=== PATIENT | male | born 1955 | race Caucasian/White ===

== ENCOUNTER 2019-06-07 11:19 | Inpatient (IN) ==
--- NOTE | 2019-05-16 13:33 | PAT Medication Instructions ---
Medication Instructions Date of Service May 16, 2019 Home Medications aspirin [Aspir-81] 81 mg PO DAILY PRN losartan 12.5 mg PO QAM ASK your prescriber and surgeon aspirin [Aspir-81] 81 mg PO DAILY PRN DO NOT take the morning of surgery losartan 12.5 mg PO QAM Other Notes If you have any questions please call us at [phone] or [phone] or [phone] or [phone]
--- NOTE | 2019-05-17 11:33 | Anesthesiology Consultation ---
Date of Service May 17, 2019 Assessment & Plan (1) Encounter for pre-operative examination: Hx mitral valve repair (2010): per patient, does not follow with cardi ology/cardiac hx monitored by PCP. Awaiting most recent PCP office visit note and response from PCP (Dr. Vinay Black) regarding obtaining most recent ECHO or updating prior to surgery if not recently evaluated. Chart Review Chart Review: Patient seen in Pre Admission Testing Teaching & Discussion Pre-Anesthesia Teaching/Discussion Notes: Instructed NPO after midnight before surgery,except medications with 15 cc of water. Medication instructions provided according to the PAT guidelines. History Surgery Operation Date: 06/07/19 14:05 Proposed Procedures p Left Anterior Total Hip Arthroplasty - Cj Perdomo, Height/Weight Height: 5 ft 8 in Weight: 116.8 kg Allergies Allergy/AdvReac Type Severity Reaction Status Date / Time morphine AdvReac Mild DIZZINESS Verified 05/17/19 10:33 Medications Home Medications Medication Instructions Recorded Confirmed Last Taken aspirin [Aspir-81] 81 mg PO DAILY PRN 05/13/19 05/17/19 Unknown losartan 12.5 mg PO QAM 05/13/19 05/17/19 Unknown Past Medical History Medical History (Updated 05/17/19 @ 12:02 by Rae Sow) A-fib episodic (2010) per records Deep vein thrombosis RLE DVT (2009)- r/t injury, s/p AC x 6 months Diverticular disease Hypertension Mitral valve disease s/p mitral valve repair (2010)- monitored by PCP/does not follow with cardiology Obesity Osteoarthritis Pulmonary embolism 2009- s/p AC x 6 months Exercise / Class Metabolic Activity III < 4 Walking/Shop/Light housework Past Surgical History Surgical History History of colonoscopy History of mitral valve repair 2010 History of umbilical hernia repair Past Anesthesia History No Hx of Anesthesia Complications (except PONV) and No Family Hx of Anesthesia Complications History of PONV No Hx of Motion Sickness and History of PONV Social History Smoking Status: Never smoker Do You Dip or Chew Tobacco: No Hx Alcohol Use: No Hx Substance Use: No substance use type: does not use Review of Systems Patient denies chest pain, shortness of breath, cough, wheezing, palpitations. Physical Exam Vital Signs VITALS BP 138/82 P 68 TEMP 98.4 S 97%RAP02 RESP 18 PHYSICAL Full neck and c-spine range of motion. Full TMJ range of motion. TMD 3 finger breaths Mallampati Score 2 Dentition: full dentures upper/lower Lungs: clear throughout to auscultation Cardiac: regular rate and rhythm, II/ systolic murmur Spine: normal Carotid arteries: negative bruit Extremities: no edema + day (patient wishes to not shave/trim for anglican reasons if possible. Advised patient that ultimate decision regarding day and shaving will be up to anesthesiologist AM DMITRIY) Testing Laboratory Results 05/17/19 11:50 05/17/19 11:50 PT 10.3 Seconds (9.0-12.0) 05/17/19 11:50 INR 1.0 (0.9-1.1) 05/17/19 11:50 APTT 27.9 Seconds (21.0-31.0) 05/17/19 11:50 Blood Type A Positive 05/17/19 11:50 Antibody Screen NEGATIVE 05/17/19 11:50 Electrocardiogram Date: 05/17/19 SR with first degree AVB at 76bpm. Otherwise "normal" ECG. Chest X-Ray Date: 05/17/19 No pneumothorax. No pleural effusions. There are poststernotomy changes and a mitral valve ring. The lungs are clear. The heart remains top normal in size. Stable right hilar prominence. This is likely vascular. IMPRESSION: No acute process
--- NOTE | 2019-05-17 12:27 | XRay Report ---
XR chest Pre-admission PA/Lat HISTORY: Preop. COMPARISON: Chest 11/23/2016. FINDINGS: No pneumothorax. No pleural effusions. There are poststernotomy changes and a mitral valve ring. The lungs are clear. The heart remains top normal in size. Stable right hilar prominence. This is likely vascular. IMPRESSION: No acute process. ACT 112: Negative or not required by law. Electronically signed by: Liu Terry M.D. 05/17/2019 12:26 PM
[2019-05-17 13:58] LABS: Basophils # (auto) 0.11 K/uL (0-0.2); Basophils % (auto) 1.6 %; Eosinophils # (auto) 0.39 K/uL (0-0.5); Eosinophils % (auto) 5.7 %; Hematocrit (blood only) 42.6 % (42-52); Hemoglobin 14.5 g/dL (14.0-18.0); Immature Granulocytes # (auto) 0.01 K/uL (0.00-0.02); Immature Granulocytes % (auto) 0.1 %; Lymphocytes # (auto) 1.65 K/uL (1.2-3.4); Lymphocytes % (auto) 24.2 %; Mean Corpuscular Hemoglobin 31.8 pg (25-34); Mean Corpuscular Volume 93.4 fL (80-100); Mean Platelet Volume 10.7 fL (7.4-10.4); Monocytes % (auto) 8.8 %; Neutrophils # (auto) 4.07 K/uL (1.4-6.5); Neutrophils % (auto) 59.6 %; Platelet Count 178 K/uL (130-400); RDW Coefficient of Variation 12.7 % (11.5-14.5); RDW Standard Deviation 42.7 fL (36.4-46.3); Red Blood Count 4.56 M/uL (4.7-6.1); White Blood Count 6.83 K/uL (4.8-10.8)
--- NOTE | 2019-05-17 13:58 | Electrocardiogram Report ---
Test Reason : Blood Pressure : / mmHG Vent. Rate : 076 BPM Atrial Rate : 076 BPM P-R Int : 210 ms QRS Dur : 092 ms QT Int : 392 ms P-R-T Axes : 104 041 063 degrees QTc Int : 441 ms Sinus rhythm with 1st degree A-V block Otherwise normal ECG When compared with ECG of 25-NOV-2010 06:27, Sinus rhythm has replaced Atrial fibrillation Non-specific change in ST segment in Inferior leads Confirmed by Rafiq Brown ([id number]) on 05/17/2019 1:58:35 PM Referred By: Cj Perdomo Confirmed By:Rafiq Brown
[2019-05-17 14:13] LABS: Partial Thromboplastin Time 27.9 Seconds (21.0-31.0); Prothrombin Time 10.3 Seconds (9.0-12.0)
[2019-05-17 14:26] LABS: Calcium 9.2 mg/dl (8.5-10.1); Creatinine Clr Calc Pharmacy 120.3 ml/min; Est GFR (African American) 110.8; Est GFR (Non-African American) 95.6; Potassium 4.1 mmol/L (3.5-5.1)
--- NOTE | 2019-06-06 07:39 | History & Physical Report ---
Date of Service June 06, 2019 Assessment & Plan (1) Osteoarthritis of left hip: We will proceed with a left total hip arthroplasty. Postoperatively he will be started on Xarelto for DVT prophylaxis for 35 days. He will be kept overnight in the hospital for postoperative medical management. He plans to go to outpatient physical therapy upon discharge. Present on Admission?: Yes History of Present Illness Chief Complaint: Primary osteoarthritis of the left hip Primary Care Provider: Vinay Black MD Clyde is a pleasant 64-year-old male who presented my office with chronic increasing left hip and groin pain. X-rays and clinical examination have been diagnostic for primary osteoarthritis of the left hip. After failing conservative treatment, he has elected to proceed with a left total hip arthroplasty. Allergies Allergy/AdvReac Type Severity Reaction Status Date / Time morphine AdvReac Mild DIZZINESS Verified 05/17/19 10:33 Home Medications Home Medications Medication Instructions Recorded Confirmed Type aspirin [Aspir-81] 81 mg PO DAILY PRN 05/13/19 05/17/19 History losartan 12.5 mg PO QAM 05/13/19 05/17/19 History Past Med/Surg History Medical History A-fib episodic (2010) per records Deep vein thrombosis RLE DVT (2009)- r/t injury, s/p AC x 6 months Diverticular disease Hypertension Mitral valve disease s/p mitral valve repair (2010)- monitored by PCP/does not follow with cardiology Obesity Osteoarthritis Pulmonary embolism 2009- s/p AC x 6 months Surgical History History of colonoscopy History of mitral valve repair 2010 History of umbilical hernia repair Social History Preferred Language: Belarusian Communication Ability: Effective 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 Beliefs That Will Affect Care: Judaism Judaism Beliefs: pt is Restorationism and Cultural Current Living Situation: Family Feels Safe at Home: Yes Smoking Status: Never smoker Second Hand Exposure: No ; Hx Alcohol Use: No Hx Substance Use: No Review of Systems All systems reviewed & are unremarkable except as noted in HPI & below Physical Exam Constitutional: WD/WN, vitals as above Eyes: PERRL, conjunctivae normal, anicteric sclerae ENMT: external ear and nose normal, oropharynx normal Neck: trachea midline, no thyromegaly Respiratory: normal respiratory effort Cardiovascular: RRR, no murmur, no edema Gastrointestinal (Abdomen): normal bowel sounds, soft, nontender, no hepatosplenomegaly Musculoskeletal: Physical examination of the left hip reveals decreased range of motion with flexion, internal and external rotation. There is significant groin pain with forced internal rotation of the hip his leg lengths are essentially equal. Psychiatric: A+Ox3, euthymic affect Results & Data Diagnostic Findings Radiographs of the left hip and pelvis demonstrate advanced osteoarthritis with joint space narrowing osteophyte formation and [id number] articulation.
[~2019-06-07 11:19] MED LIST: ACETAMINOPHEN 500 MG TAB PO SCH; BUPIVACAINE 0.5 % 5 MG/1 ML PF 10ML VIAL ONE; CEFAZOLIN 2000MG 2,000 MG/15 ML SYR IV SCH; FAMOTIDINE 20 MG TAB PO SCH; GABAPENTIN 300 MG CAP PO SCH; LR 500ML BOLUS, THEN 15ML/HR IV SCH; LR 60ML/HR IV SCH; ROPIVACAINE 0.5% HCL/PF 150 MG, BUPIVACAINE 0.5% MPF 30 ML, EPINEPHrine 30MG/30ML (OR U... INSTIL SCH; SODIUM CHLORIDE 0.9% 1,000 ML IV SCH; TRANEXAMIC ACID 1,000 MG **IV Intra-op IV SCH; TRANEXAMIC ACID 1,000 MG **IV Pre-op IV SCH; dexAMETHasone 4 MG TAB PO SCH
--- NOTE | 2019-06-07 11:40 | History & Physical Bridge Note ---
Date of Service June 07, 2019 History & Physical Bridge Note I have examined the patient, reviewed the History & Physical and in the interval since the performance of the History & Physical I have noted the following changes of clinical significance: no changes noted
[2019-06-07] MEDS ORDERED: ePHEDrine sulfate 50 MG/ML AMP IV PRN (12:47)
[2019-06-07] MEDS ORDERED: ONDANSETRON INJ 2 MG/ML 2 ML VIAL IV PRN ×2 (12:47→16:54)
[2019-06-07] MEDS ORDERED: ATROPINE SULFATE 0.1 MG/ML 10ML SYR IV PRN (12:47)
[2019-06-07] MEDS ORDERED: fentaNYL citrate 100 MCG/2 ML VIAL IV PRN (12:47)
[2019-06-07] MEDS ORDERED: MIDAZOLAM HCL 1 MG/ML 2ML VIAL ONE (13:42)
[2019-06-07] MEDS ORDERED: ORTHO JOINT ANESTHETIC ONE (13:52)
[2019-06-07] MEDS ORDERED: ONDANSETRON INJ 2 MG/ML 2 ML VIAL ONE (14:16)
[2019-06-07] MEDS ORDERED: PROPOFOL IV EMULSION 10 MG/ML 20 ML VIAL IV ONE (14:16)
[2019-06-07] MEDS ORDERED: DEXAMETHASONE SOD INJ 4 MG/ML VIAL ONE (14:16)
[2019-06-07] MEDS ORDERED: LIDOCAINE HCL 2% 2 ML VIAL/AMP(20MG/ML) INFIL ONE ×3 (14:16→14:56)
--- NOTE | 2019-06-07 15:41 | Fluoroscopy Report ---
FL hip LT 1V CLINICAL HISTORY: LEFT ANTERIOR JEANNE COMPARISON STUDY: None. FLUOROSCOPY TIME: 32 seconds.. FINDINGS: A single fluoroscopic spot image of the left hip demonstrates a left total hip arthroplasty . The hardware appears intact. No fracture or dislocation. IMPRESSION: Fluoroscopy provided for left total hip arthroplasty. ACT 112: Negative or not required by law. Electronically signed by: Liu Terry M.D. 06/07/2019 3:40 PM
--- NOTE | 2019-06-07 15:43 | Operative Report ---
PG Post Operative Report Pre & Post Diagnosis Operation Date: 06/07/19 13:40 Pre-Op Diagnosis: Degenerative Joint Disease, Left Hip Post-Op Diagnosis: Degenerative Joint Disease, Left Hip I identified the patient and participated in the time-out.: Yes Procedure Operation Date: 06/07/19 13:40 Actual Procedures p Left Anterior Total Hip Arthroplasty(Left) - Cj Perdomo DO Surgeon Cj Perdomo DO Hull Molder Cj Walter PAC Estimated Blood Loss 300 Findings Consistent with Post-Op Diagnosis Specimens Left femoral head Complications none Disposition Disposition: Recovery Room Indications Clyde is a pleasant 64-year-old male who presented my office with chronic increasing bilateral hip and groin pain. X-rays and clinical examination were diagnostic for advanced osteoarthritis of the left hip. After failing conservative treatment, he elected proceed with a left anterior total hip arthroplasty. Description of Procedure Implants used Biomet Taperloc total hip arthroplasty system with a size 14 standard offset Taperloc stem, a 56 mm G7 cup with a 25mm screw, an E1 polyethylene liner, a 40 mm ceramic head with a +6 neck. Patient arrived at the hospital for the above procedure. They were seen in the preoperative holding area and the operative extremity was identified and signed. They were given a spinal anesthetic. They were given a preoperative antibiotic and TXA. They were taken back To the operating room and laid on the table in the supine position. The leg was brought out through a Puristst leg positioner. The hip was then prepped and draped in sterile fashion. A timeout was done and the patient and the operative extremity was properly identified. An anterior approach was used. Dissection was taken down through the fascia and the tensor muscle belly was retracted laterally and the rectus was retracted medially. The circumflex vessels were identified and ligated. The capsule was then incised and tagged for later repair. The femoral neck was then cut and the femoral head was removed. The acetabulum was exposed. Time was spent doing a complete circumferential labral release. Sequential reaming of the acetabulum up to a size 55 reamer was done. Final reamings were done under fluoroscopy to ensure appropriate version. A Biomet 56 mm G7 cup was then impacted into place. A single 25 mm screw was placed. The E1 polyethylene liner was then snapped in to place. Surrounding soft tissues were then injected with 100 cc of an orthopedic pain control cocktail. The proximal femur was then exposed. Sequential broaching up to a size 14 broach was done. Off that broach a size 40 head with a +6 neck was trialed. The hip was reduced and fluoroscopic images showed anatomic alignment of the implants in acceptable length. The broach was removed. The final size 14 standard offset Taperloc stem was then impacted into place. A ceramic 40 mm head with a +6 neck was then impacted into place in the hip was reduced. Final fluoroscopic images showed anatomic reduction of the hip. The capsule was then closed with #1 Vicryl suture. A dilute betadyne lavage was then done for 3 minutes. The joint was then irrigated with normal saline solution. The fascia was closed with #1 PDS suture. Skin was closed with 2-0 Vicryl, rosanna, and a Jeannette VAC dressing. The patient was then transferred to a hospital bed and taken to the post anesthesia care unit in stable condition. They tolerated the procedure well. I attest to the content of the Intraoperative Record and any orders documented therein. Any exceptions are noted below.
--- NOTE | 2019-06-07 16:40 | Anesthesiology Progress Note ---
Date of Service June 07, 2019 Anesthesia Post Procedure Vital Signs Vital Signs: Temp Pulse Pulse Resp BP Pulse Ox 06/07/19 16:35 36.9 C 85 15 120/70 96 06/07/19 16:25 87 17 118/71 96 06/07/19 16:15 90 19 122/67 97 06/07/19 16:06 36.8 C 90 22 109/64 97 06/07/19 12:08 36.4 C L 85 20 170/85 H 96 Transfer of Care Handoff Completed per policy Notes Mental Status: alert / awake / arousable and participated in evaluation Patient Amnestic to Procedure: Yes Nausea / Vomiting: adequately controlled Pain: adequately controlled Airway Patency, RR, SpO2: stable & adequate BP & HR: stable & adequate Hydration State: stable & adequate Neuraxial Anesthesia: was administered and sensory block is resolving Anesthetic Complications: no major complications apparent and Pt Satisfied with anesthetic care
--- NOTE | 2019-06-07 16:53 | XRay Report ---
XR hip 1V LT w pelvis CLINICAL HISTORY: IN PACU - A/P PELVIS and LATERAL HIP COMPARISON: None. DISCUSSION: Anatomic alignment posttotal left hip arthroplasty. Could contact between prosthetic and underlying bone. Expected postoperative soft tissue change. IMPRESSION: Anatomic alignment posttotal left hip arthroplasty. ACT 112: Negative or not required by law. The above report was generated using voice recognition software. It may contain grammatical, syntax or spelling errors. Electronically signed by: Jesus Lugo M.D. 06/07/2019 4:52 PM
[2019-06-07] MEDS ORDERED: HYDROmorphone INJ 0.5 MG/0.5 ML SYR IV PRN (16:54)
[2019-06-07] MEDS ORDERED: OXYCODONE HCL IR 5 MG TAB (IMMEDIATE RELEASE) PO PRN (16:54)
[2019-06-07] MEDS ORDERED: NALOXONE HCL 0.4 MG/1 ML VIAL/CARP IV PRN (16:54)
[2019-06-07] MEDS ORDERED: METOCLOPRAMIDE HCL INJ 5 MG/ML 2 ML VIAL IV PRN (16:54)
[2019-06-07] MEDS ORDERED: MAGNESIUM HYDROXIDE SUSP 30 ML UDC PO PRN (16:54)
[2019-06-07] MEDS ORDERED: bisacodyL 10 MG SUPP PR PRN (16:54)
[2019-06-07] MEDS: KETOROLAC 30 MG/ML VIAL IV SCH ×2 (17:52→23:40)
[2019-06-07] MEDS: SODIUM CHLORIDE 0.9% 1000ML 1,000 ML IV SCH (20:10)
[2019-06-07] MEDS ORDERED: SENNA 8.6 MG TAB PO SCH (21:00)
[2019-06-07] MEDS: DOCUSATE SODIUM 100 MG CAP PO SCH (21:10)
[2019-06-07] MEDS: ACETAMINOPHEN 500 MG TAB PO SCH (21:10)
[2019-06-07] MEDS: CEFAZOLIN 2000MG 2,000 MG/15 ML SYR IV SCH (21:10)
[2019-06-08] MEDS: SODIUM CHLORIDE 0.9% 1000ML 1,000 ML IV SCH (05:11)
[2019-06-08] MEDS: ACETAMINOPHEN 500 MG TAB PO SCH (05:13)
[2019-06-08] MEDS: KETOROLAC 30 MG/ML VIAL IV SCH (05:13)
[2019-06-08] MEDS: CEFAZOLIN 2000MG 2,000 MG/15 ML SYR IV SCH (05:14)
[2019-06-08 05:50] LABS: Basophils # (auto) 0.01 K/uL (0-0.2); Basophils % (auto) 0.1 %; Hematocrit (blood only) 38.3 % (42-52); Hemoglobin 13.1 g/dL (14.0-18.0); Immature Granulocytes # (auto) 0.03 K/uL (0.00-0.02); Immature Granulocytes % (auto) 0.2 %; Lymphocytes # (auto) 0.81 K/uL (1.2-3.4); Mean Corpuscular Hemoglobin 30.7 pg (25-34); Mean Corpuscular Hgb Conc 34.2 g/dL (32-36); Mean Corpuscular Volume 89.7 fL (80-100); Mean Platelet Volume 9.9 fL (7.4-10.4); Monocytes # (auto) 0.52 K/uL (0.11-0.59); Monocytes % (auto) 3.8 %; Neutrophils # (auto) 12.14 K/uL (1.4-6.5); Neutrophils % (auto) 89.9 %; Platelet Count 170 K/uL (130-400); RDW Coefficient of Variation 12.3 % (11.5-14.5); RDW Standard Deviation 39.8 fL (36.4-46.3); Red Blood Count 4.27 M/uL (4.7-6.1); White Blood Count 13.51 K/uL (4.8-10.8)
[2019-06-08 06:18] LABS: BUN Creatinine Ratio 22.8 (10-20); Calcium 8.6 mg/dl (8.5-10.1); Creatinine Clr Calc Pharmacy 89.7 ml/min; Est GFR (African American) 90.5; Est GFR (Non-African American) 78.1
--- NOTE | 2019-06-08 06:24 | Orthopedic Progress Note ---
Date of Service June 08, 2019 Assessment & Plan (1) History of left hip replacement: Overall he is doing very well. Is not having too much pain in the left hip. He is on Xarelto for DVT prophylaxis. He will be seen by physical therapy again this morning for ambulation and range of motion exercises. He can be discharged home later today. He will follow-up with orthopedics in 2 weeks. Present on Admission?: Yes Subjective Clyde was seen and examined at bedside this morning. Overall he is doing very well. He is not having too much pain in the left hip. He was already up and ambulating into the hallways. He has no complaints. Physical Exam Musculoskeletal: On physical examination of the left hip, the Jeannette VAC d ressing is to suction. His leg lengths are equal. He has active dorsiflexion and plantarflexion of his left ankle. Sensation is intact throughout. Results & Data ([facility]) Vital Signs (Past 12 Hours) Vital Signs Temp Pulse Resp BP Pulse Ox 06/08/19 03:34 36.6 C 81 18 136/76 92 06/07/19 23:23 36.3 C L 81 17 135/79 92 06/07/19 19:57 36.5 C 86 17 133/80 92 06/07/19 18:52 36.5 C 94 H 18 137/80 94 Laboratory Results H & H 05/17/19 06/08/19 Range/Units 11:50 05:25 Hgb 14.5 13.1 L (14.0-18.0) g/dL Hct 42.6 38.3 L (42-52) % Coagulation 05/17/19 Range/Units 11:50 INR 1.0 (0.9-1.1) Diagnostic Findings Postoperative x-rays of the left hip show the prosthesis to be in anatomic align ment without any evidence of fracture, dislocation, or loosening. PG Care Time/CCT Total # of Minutes Spent Total Time Spent with Patient: Total time spent is greater than 50% in coordination of care (as documented) at patient's floor/unit and/or counseling patient: Coding Level of Care Code None Diagnoses History of left hip replacement Z96.642
--- NOTE | 2019-06-08 06:32 | Discharge Summary ---
Date of Service June 08, 2019 Admission HPI Per Admitting Provider Clyde is a pleasant 64-year-old male who presented my office with chronic increasing left hip and groin pain. X-rays and clinical examination have been diagnostic for primary osteoarthritis of the left hip. After failing conservative treatment, he has elected to proceed with a left total hip arthroplasty. Principal Diagnosis Left total hip arthroplasty Discharge Data Allergies Allergy/AdvReac Type Severity Reaction Status Date / Time morphine AdvReac Mild DIZZINESS Verified 06/07/19 11:47 Consultations 06/08/19 08:00 Consult Case Management - Discharge Planning Routine Procedures Performed Operation Date: 06/07/19 13:40 Actual Procedures p Left Anterior Total Hip Arthroplasty(Left) - Cj Perdomo DO Ordered Studies 06/07/19 07:00 FL fluoroscopy <1hr Routine FL hip LT 1V Routine Hospital Course (1) History of left hip replacement: On June 07, 2019 Clyde arrived at [facility] and underwent a left anterior total hip replacement without complication. He had a spinal anesthetic. Postoperatively he was started on Xarelto for DVT prophylaxis and discharged to general orthopedic floors. His hospital course was uneventful. On postop day #1 his H&H was stable and his pain was well controlled. He was able to participate well with physical therapy doing ambulation and range of motion exercises. He was then discharged home. He will follow-up with orthopedics in 2 weeks. Total Time Total Time Spent Total Time Spent (In Minutes): 20 Discharge Plan Discharge Items Reason For Visit: Degenerative Joint Disease, Left Hip Discharge Diagnosis: Left total hip arthroplasty Activity: As commented below Non-emergency contact: Surgeon Call non-emergency contact if: your wound has increased redness and your wound has increased drainage Follow-up/Referrals: Vinay Black MD [Primary Care Provider] - Diet: Regular Addtl Attending Provider Instructions: Activity and Therapy Recommendations: * If you are using [facility] then therapy will be provided at your home until they feel you have accomplished all of your goals. * If you are using [facility] then Physical Therapy will be provided until they feel you are ready to start Outpatient Physical Therapy. * If you are not using home therapy then Outpatient Physical Therapy should start about 3-5 days from your day of surgery. Therapy will last about 6-10 weeks * You were shown a series of exercises in the hospital. Do these exercises three times each day including the exercises you were shown in physical therapy. * Get up and walk several times each day.~ For the first four weeks, try not to stand or walk for more than one hour at a time. If you do stand or walk for more than one hour, you will not hurt anything, but your leg will likely swell.~~ * As you feel comfortable, you may change from the walker or crutches to a cane and~then to independent walking. Medications: * Narcotic You will likely be sent home from the hospital with a prescription for the narcotic pain medication that worked best throughout your stay. * Aspirin Most patients will be required to take Aspirin 81mg twice a day for 6 weeks after surgery. This is obtained [id number] and a prescription is not necessary. * Other medications may be prescribed for specific circumstances. If you have any questions, please call the office at . * Resume previous home medications unless otherwise instructed TEDs/Elastic Stockings: The white elastic stockings help limit swelling and prevent blood clots from forming in your legs. The more you wear them, the more they work. Wear them for six weeks. Dressing Care: You will likely have a purple VAC dressing after surgery. This dressing will keep the incision dry and promote early healing. After about 7 days the batteries will wear out and the VAC will lose suction. Simply remove the dressing at that time and throw everything away, including the small suction machine. Then, you may leave the rosanna open to air or cover them with a dry dressing so they do not rub on your pants. The rosanna will be removed at your 2 week follow-up appointment. Showering: You may shower immediately with the purple VAC dressing. Let the shower spray hit your opposite side and slowly pat the plastic dry. Do not soak the dressing. After the dressing is removed you may shower normally with the rosanna exposed. Let soapy water run over the rosanna and pat them dry. Things To Watch For: * Drainage from the incision site that occurs more than one week after your surgery. * Increased redness at the incision site. * Fever above 102 degrees Fahrenheit. * Unusual chest pain or shortness of breath. * [facility] at with any of the above problems Follow-Up Visit: Follow-up with Dr. Perdomo 2-3 weeks after your day of surgery. An appointment was probably scheduled when you signed-up for surgery in the office. If you have any questions call Office Instructions: More detailed instructions as well as Frequently Asked Questions were provided in a folder by our office when you signed-up for surgery. Please review these instructions when you get home. If you have any further questions or concerns, please feel free to call the office at [phone] Pending Studies at Discharge: No Stand-Alone Forms: [facility] DocSend, Smoking Cessation Medications and DC Order Prescriptions: New oxycodone 5 mg Tablet 5 mg PO Q4H PRN (Reason: pain) Qty: 30 RF: 0 Xarelto 20 mg tablet 20 mg PO DAILY Qty: 34 RF: 0 Continued losartan 25 mg Tablet 12.5 mg PO QAM RF: 0 Discontinued aspirin [Aspir-81] 81 mg Tablet,Delayed Release (Dr/Ec) 81 mg PO DAILY PRN (Reason: Pain) RF: 0 Admission Data Admit Date/Time: 06/07/19 16:09 Attending Provider: Cj Perdomo Admit Provider: Cj Perdomo Primary Care Provider: Vinay Black Coding Level of Care Code D/C Day Management <30 mins Diagnoses History of left hip replacement Z96.642
[2019-06-08] MEDS: DOCUSATE SODIUM 100 MG CAP PO SCH (07:30)
[2019-06-08] MEDS ORDERED: dexAMETHasone 4 MG TAB PO SCH (08:00)
[2019-06-08] MEDS ORDERED: RIVAROXABAN 20 MG TAB PO SCH (09:00)
[2019-06-08] MEDS ORDERED: LOSARTAN POTASSIUM 25 MG TAB PO SCH (09:00)
[2019-06-08] MEDS ORDERED: RIVAROXABAN 10 MG TABLET PO SCH (09:00)
[2019-06-08] MEDS ORDERED: MULTIVITAMIN TAB PO SCH (09:00)
== END 2019-06-08 11:17 | disposition home or self-care (01) | DRG 470 ==
LOC: ASU 11:19 → 3E 16:09

== ENCOUNTER 2019-10-07 06:50 | Observation (INO) ==
--- NOTE | 2019-10-04 13:27 | Communication Note ---
Date of Service: October 04, 2019 Travel assessment/history reviewed - low risk at this time - will be reviewed the morning of surgery. Preop routine covid 19 screening test 09/30/2019 was NE GATIVE/not detected.
--- NOTE | 2019-10-04 14:23 | Anesthesiology Consultation ---
Date of Service October 04, 2019 Assessment & Plan (1) Encounter for pre-operative examination: Case R/S due to covid19 pandemic. Pre-op labs done 07/19 are now out of date. CBC, BMP, PT/INR/PTT AM DOS. S/P L JEANNE 06/07/19 = SAB with no complications. COVID Status: As of 10/03 nurse assessment, patient denies travel to endemic area, known exposure/sick contacts, or symptoms. Tested for covid19 on 09/29 -- results NEGATIVE/not detected. Chart Review Chart Review: Acceptable Risk for Surgery (pending updated labs AM DOS) History Surgery Operation Date: 10/07/19 12:30 Proposed Procedures p Right Anterior Total Hip Arthroplasty - Cj Perdomo, Height/Weight Height: 5 ft 8 in Weight: 118.388 kg Allergies Allergy/AdvReac Type Severity Reaction Status Date / Time morphine AdvReac Mild DIZZINESS Verified 10/04/19 08:15 Medications Home Medications Medication Instructions Recorded Confirmed Last Taken losartan 12.5 mg PO QAM 05/13/19 10/04/19 06/06/19 07:00 aspirin [Aspir-81] 81 mg PO DAILY 07/20/19 10/04/19 Unknown Past Medical History Medical History A-fib episodic (2010) per records. Has not been on anticoagulation for many years. Aortic stenosis Mild on 05/2019 echo Deep vein thrombosis RLE DVT (2009)- r/t injury, s/p AC x 6 months Diverticular disease Hypertension Mitral valve disease s/p mitral valve repair (2010)- monitored by PCP/does not follow with cardiology Obesity Osteoarthritis Pulmonary embolism 2009 with DVT- s/p AC x 6 months Exercise / Class Metabolic Activity II 4-5 Yardwork/Stairs/Walk up hill Past Family History Family History Other No significant family history Past Surgical History Surgical History History of cardiac cath 2010 NO STENTS History of colonoscopy History of left hip replacement (~05/2019) History of mitral valve repair 2010 History of tooth extraction History of umbilical hernia repair Past Anesthesia History No Hx of Anesthesia Complications and No Family Hx of Anesthesia Complications History of PONV No Hx of PONV and No Hx of Motion Sickness Social History Smoking Status: Never smoker Do You Dip or Chew Tobacco: No Hx Alcohol Use: No Hx Substance Use: No substance use type: does not use Physical Exam Vital Signs (From 07/20/19 PAT appt) BP: 138/80 P: 81bpm SPO2: 93% RA T: 36.4 C R: 20 (From PAT appt 07/20/19) Constitutional + obese ENMT Mouth: + dentures and + edentulous Thyromental Distance: < 3.5 Finger Breadths (3) Mallampati Class: I Neck normal visual inspection and + facial hair (long thin day (Pt is Orthodoxy)); neck extension not limited Respiratory normal respiratory effort Auscultation: lungs clear to auscultation bilaterally Cardiovascular Rate/Rhythm: regular rate and regular rhythm Heart Sounds: no murmur Extremities: no edema Testing Other Testing Electrocardiogram Date: 05/17/19 Findings: + NSR @ (76bpm with 1st degree AV block) Otherwise normal EKG. Compared to EKG from 11/18/10, SR has replaced Afib. Nonspecific change in ST segment in inferior leads. Chest X-Ray Date: 05/17/19 Findings: + NAD Echocardiogram Date: 05/31/19 EF: 60-65% Normal biventricular systolic function. Normal chamber dimensions. Mild aortic stenosis (SANJUANA 1.6 cm). Trace aortic regurgitation. Mitral valve annuloplasty ring. Trace mitral regurgitation. No mitral stenosis. Moderate tricuspid regurgitation. Moderately elevated estimated RVSP. Trace pulmonic regurgitation. Normal estimated central venous pressure.
--- NOTE | 2019-10-06 06:57 | History & Physical Report ---
Date of Service October 06, 2019 Assessment & Plan (1) Degenerative joint disease of right hip: We will proceed with a right anterior total hip arthroplasty. Postoperatively he will be placed on Xarelto for DVT prophylaxis and kept overnight in the hospital for postoperative medical management. He plans to use [facility] outpatient physical therapy upon discharge. Clyde is an increased risk for hip replacement surgery due to his cardiac history, his history of DVTs which will require more aggressive postoperative anticoagulation, and his obesity. Present on Admission?: Yes History of Present Illness Chief Complaint: Primary osteoarthritis of the right hip Primary Care Provider: Vinay Black MD Clyde is a pleasant 64-year-old male who is been dealing with chronic bilateral hip pain. He underwent a left anterior total hip arthroplasty about 6 months ago. He is done very well with that. Unfortunately he has been dealing with a lot of right hip pain. X-rays and clinical examination have been diagnostic for primary osteoarthritis of the right hip. After failing conservative treatment, he has elected to proceed with a right anterior total hip arthroplasty. Allergies Allergy/AdvReac Type Severity Reaction Status Date / Time morphine AdvReac Mild DIZZINESS Verified 10/04/19 08:15 Home Medications Home Medications Medication Instructions Recorded Confirmed Type losartan 12.5 mg PO QAM 05/13/19 10/04/19 History aspirin [Aspir-81] 81 mg PO DAILY 07/20/19 10/04/19 History Past Med/Surg History Medical History A-fib episodic (2010) per records. Has not been on anticoagulation for many years. Aortic stenosis Mild on 05/2019 echo Deep vein thrombosis RLE DVT (2009)- r/t injury, s/p AC x 6 months Diverticular disease Hypertension Mitral valve disease s/p mitral valve repair (2010)- monitored by PCP/does not follow with [facility] rdiology Obesity Osteoarthritis Pulmonary embolism 2009 with DVT- s/p AC x 6 months Surgical History History of cardiac cath 2010 NO STENTS History of colonoscopy History of left hip replacement (~05/2019) History of mitral valve repair 2011 History of tooth extraction History of umbilical hernia repair Family History Other No significant family history Social History Preferred Language: French Communication Ability: Effective [employer] Math Teacher Required: No Beliefs That Will Affect Care: Catholic Catholic Beliefs: ROLANDO marital status: Current Living Situation: Spouse Feels Safe at Home: Yes Smoking Status: Never smoker Second Hand Exposure: No ; Hx Alcohol Use: No Hx Substance Use: No Review of Systems Review of Systems: All systems reviewed & are unremarkable except as noted in HPI & below Physical Exam Constitutional: WD/WN, vitals as above Eyes: PERRL, conjunctivae normal, anicteric sclerae ENMT: external ear and nose normal, oropharynx normal Neck: trachea midline, no thyromegaly Respiratory: normal respiratory effort Cardiovascular: RRR, no murmur, no edema Gastrointestinal (Abdomen): normal bowel sounds, soft, nontender, no hepatosplenomegaly Musculoskeletal: Physical examination of the right hip reveals decreased range of motion with flexion, internal and external rotation. There is significant groin pain with forced internal rotation of the hip his leg lengths are essentially equal. Psychiatric: A+Ox3, euthymic affect Results & Data Results & Data ([facility]) Diagnostic Findings Radiographs of the right hip and pelvis demonstrate advanced osteoarthritis with joint space narrowing osteophyte formation and [id number] articulation. PG Care Time/CCT Total # of Minutes Spent Total Time Spent with Patient: Total time spent is greater than 50% in coordination of care (as documented) at patient's floor/unit and/or counseling patient: Coding Level of Care Code 34122 Initial Inpt Care Lvl 3 Diagnoses Degenerative joint disease of right hip M16.11
[~2019-10-07 06:50] MED LIST changes: -SODIUM CHLORIDE 0.9% 1,000 ML IV SCH
[2019-10-07 07:26] LABS: Hematocrit (blood only) 43.1 % (42-52); Hemoglobin 14.7 g/dL (14.0-18.0); Mean Corpuscular Hemoglobin 30.4 pg (25-34); Mean Corpuscular Volume 89.2 fL (80-100); Mean Platelet Volume 9.8 fL (7.4-10.4); Platelet Count 173 K/uL (130-400); RDW Standard Deviation 42.5 fL (36.4-46.3); Red Blood Count 4.83 M/uL (4.7-6.1); White Blood Count 6.68 K/uL (4.8-10.8)
[2019-10-07 07:36] LABS: Mean Corpuscular Hgb Conc 34.1 g/dL (32-36)
[2019-10-07 07:38] LABS: BUN Creatinine Ratio 15.3 (10-20); Calcium 8.8 mg/dl (8.5-10.1); Creatinine Clr Calc Pharmacy 63.6 ml/min; Est GFR (African American) 105.2; Est GFR (Non-African American) 90.8; Potassium 3.6 mmol/L (3.5-5.1)
[2019-10-07 07:49] LABS: Partial Thromboplastin Time 28.8 Seconds (21.0-31.0); Prothrombin Time 10.9 Seconds (9.0-12.0)
[2019-10-07] MEDS ORDERED: fentaNYL citrate 100 MCG/2 ML VIAL ONE (08:30)
[2019-10-07] MEDS ORDERED: MIDAZOLAM HCL 1 MG/ML 2ML VIAL ONE (08:30)
--- NOTE | 2019-10-07 08:31 | History & Physical Bridge Note ---
Date of Service October 07, 2019 History & Physical Bridge Note I have examined the patient, reviewed the History & Physical and in the interval since the performance of the History & Physical I have noted the following changes of clinical significance: no changes noted
[2019-10-07] MEDS ORDERED: ATROPINE SULFATE 0.1 MG/ML 10ML SYR IV PRN (08:45)
[2019-10-07] MEDS ORDERED: ONDANSETRON INJ 2 MG/ML 2 ML VIAL IV PRN ×2 (08:45→12:26)
[2019-10-07] MEDS ORDERED: ePHEDrine sulfate 50 MG/ML AMP IV PRN (08:45)
[2019-10-07] MEDS ORDERED: fentaNYL citrate 100 MCG/2 ML VIAL IV PRN (08:45)
[2019-10-07] MEDS ORDERED: ORTHO JOINT ANESTHETIC ONE (08:58)
[2019-10-07] MEDS ORDERED: LIDOCAINE HCL 2% 2 ML VIAL/AMP(20MG/ML) INFIL ONE (09:03)
[2019-10-07] MEDS ORDERED: PROPOFOL IV EMULSION 10 MG/ML 20 ML VIAL IV ONE (09:03)
[2019-10-07] MEDS ORDERED: PHENYLEPHRINE HCL 10 MG/ML VIAL ONE (10:06)
--- NOTE | 2019-10-07 10:48 | Operative Report ---
PG Post Operative Report Pre & Post Diagnosis Operation Date: 10/07/19 08:50 Pre-Op Diagnosis: RIGHT HIP DEGENERATIVE JOINT DISEASE Post-Op Diagnosis: RIGHT HIP DEGENERATIVE JOINT DISEASE I identified the patient and participated in the time-out.: Yes Procedure Operation Date: 10/07/19 08:50 Actual Procedures p Right Anterior Total Hip Arthroplasty(Right) - Cj Perdomo DO Surgeon Cj Perdomo DO Gym Manager Cj Walter PAC Estimated Blood Loss 250 Findings Consistent with Post-Op Diagnosis Specimens Right femoral head Complications none Disposition Disposition: Recovery Room Indications Clyde is a pleasant 64-year-old male who presented my office with complaints of bilateral hip pain. X-rays and clinical examination were diagnostic for advanced osteoarthritis of both hips. He underwent a left total hip arthroplasty in May 2019 he did very well with that. He has elected to proceed with a right total hip arthroplasty. Description of Procedure Implants used I used a Biomet Taperloc total hip arthroplasty system with a size 14 standard offset Taperloc stem, a 56 mm G7 cup with a 25mm screw, an E1 polyethylene liner, a 40 mm ceramic head with a +3 neck. Clyde arrived at the hospital for the above procedure. He was seen in the preoperative holding area and the operative extremity was identified and signed. He was given a spinal anesthetic, a preoperative antibiotic, and TXA. He was then taken back to the operating room and laid on the table in the supine position. He was given basic sedation. The operative leg was secured to a Puristst leg positioner. The hip was then prepped and draped in sterile fashion. A timeout was done and the patient and the operative extremity was properly identified. An anterior approach was used. Dissection was taken down through the fascia and the tensor muscle belly was retracted laterally and the rectus was retracted medially. The circumflex vessels were identified and ligated. The capsule was then incised and tagged for later repair. The femoral neck was then cut and the femoral head was removed. The acetabulum was exposed. Time was spent doing a complete circumferential labral release. Sequential reaming of the acetabulum up to a size 55 reamer was done. Final reamings were done under fluoroscopy to ensure appropriate version. A Biomet 56 mm G7 cup was then impacted into place. A single 25 mm screw was placed. The E1 polyethylene liner was then snapped into place. Surrounding soft tissues were then injected with 100 cc of an orthopedic pain control cocktail. The proximal femur was then exposed. Sequential broaching up to a size 14 broach was done. Off that broach a size 40 head with a +3 neck was trialed. The hip was reduced and fluoroscopic images showed anatomic alignment of the implants in acceptable length. The broach was removed. The final size 14 standard offset Taperloc stem was then impacted into place. A ceramic 40 mm head with a +3 neck was then impacted onto the stem and the hip was reduced. Final fluoroscopic images showed anatomic alignment of the hip. The capsule was then closed with #1 Vicryl suture. A dilute betadyne lavage was then done for 3 minutes. The joint was then irrigated with normal saline solution. The fascia was closed with #1 PDS suture. Skin was closed with 2-0 Vicryl, rosanna, and a Jeannette VAC dressing. He was then transferred to a hospital bed and taken to the post anesthesia care unit in stable condition. He tolerated the procedure well. Cj Walter PA-C, was present for the entire procedure. He was critical for patient positioning, prepping, draping, retraction exposure, wound closure and application of sterile dressing. I attest to the content of the Intraoperative Record and any orders documented therein. Any exceptions are noted below.
--- NOTE | 2019-10-07 11:23 | Fluoroscopy Report ---
FL hip RT 1V CLINICAL HISTORY: Right hip arthroplasty. COMPARISON STUDY: Hip radiographs July 20, 2019. FLUOROSCOPY TIME: 24 seconds. FLUOROSCOPIC IMAGES: 2 FINDINGS: Fluoroscopy was provided during total right hip arthroplasty. Hardware intact. There is no fracture. Acetabular screw is noted. IMPRESSION: Fluoroscopy provided during total right hip arthroplasty. ACT 112: Negative or not required by law. Electronically signed by: Albino Wilkinson M.D. 10/07/2019 11:22 AM
--- NOTE | 2019-10-07 11:51 | XRay Report ---
AP PELVIS, CROSSTABLE LATERAL RIGHT HIP History: Right total hip arthroplasty. Degenerative arthritis. Postop. FINDINGS: The patient is status post a right total hip arthroplasty. The hardware is intact. No fract ure or dislocation. Skin rosanna are in place. Evidence for prior left total arthroplasty. IMPRESSION: Right total hip arthroplasty. No evidence for hardware complication ACT 112: Negative or not required by law. Electronically signed by: Liu Terry M.D. 10/07/2019 11:50 AM
--- NOTE | 2019-10-07 12:03 | Anesthesiology Progress Note ---
Date of Service October 07, 2019 Anesthesia Post Procedure Vital Signs Vital Signs: Temp Pulse Pulse Resp BP Pulse Ox 10/07/19 11:55 97.5 F L 72 16 117/75 98 10/07/19 11:45 97.5 F L 74 17 106/73 98 10/07/19 11:35 73 14 127/80 97 10/07/19 11:25 78 19 122/73 96 10/07/19 11:16 98.1 F 70 20 113/69 92 10/07/19 07:15 98.2 F 80 18 159/83 H 96 Transfer of Care Handoff Completed per policy Notes Mental Status: alert / awake / arousable and participated in evaluation Patient Amnestic to Procedure: Yes Nausea / Vomiting: adequately controlled Pain: adequately controlled Airway Patency, RR, SpO2: stable & adequate BP & HR: stable & adequate Hydration State: stable & adequate Neuraxial Anesthesia: was administered and sensory block is resolving Anesthetic Complications: no major complications apparent and Pt Satisfied with anesthetic care
[2019-10-07] MEDS ORDERED: MAGNESIUM HYDROXIDE SUSP 30 ML UDC PO PRN (12:26)
[2019-10-07] MEDS ORDERED: NALOXONE HCL 0.4 MG/1 ML VIAL/CARP IV PRN (12:26)
[2019-10-07] MEDS ORDERED: METOCLOPRAMIDE HCL INJ 5 MG/ML 2 ML VIAL IV PRN (12:26)
[2019-10-07] MEDS ORDERED: bisacodyL 10 MG SUPP PR PRN (12:26)
[2019-10-07] MEDS ORDERED: OXYCODONE HCL IR 5 MG TAB (IMMEDIATE RELEASE) PO PRN (12:26)
[2019-10-07] MEDS ORDERED: HYDROmorphone INJ 0.5 MG/0.5 ML SYR IV PRN (12:26)
[2019-10-07] MEDS: SODIUM CHLORIDE 0.9% 1000ML 1,000 ML IV SCH ×2 (12:42→22:16)
[2019-10-07] MEDS: KETOROLAC TROMETHAMINE 15 MG/ML VIAL IV SCH ×2 (13:46→18:09)
[2019-10-07] MEDS: ACETAMINOPHEN 500 MG TAB PO SCH ×2 (13:46→21:12)
[2019-10-07] MEDS: CEFAZOLIN 2000MG 2,000 MG/15 ML SYR IV SCH (18:09)
[2019-10-07] MEDS ORDERED: SENNA 8.6 MG TAB PO SCH (21:00)
[2019-10-07] MEDS: DOCUSATE SODIUM 100 MG CAP PO SCH (21:12)
[2019-10-08] MEDS: CEFAZOLIN 2000MG 2,000 MG/15 ML SYR IV SCH (00:11)
[2019-10-08] MEDS: KETOROLAC TROMETHAMINE 15 MG/ML VIAL IV SCH ×2 (00:11→06:05)
[2019-10-08] MEDS: ACETAMINOPHEN 500 MG TAB PO SCH (06:04)
[2019-10-08 06:26] LABS: Basophils # (auto) 0.01 K/uL (0-0.2); Basophils % (auto) 0.1 %; Hemoglobin 12.7 g/dL (14.0-18.0); Immature Granulocytes # (auto) 0.04 K/uL (0.00-0.02); Immature Granulocytes % (auto) 0.3 %; Lymphocytes # (auto) 0.61 K/uL (1.2-3.4); Lymphocytes % (auto) 4.3 %; Mean Corpuscular Hemoglobin 31.3 pg (25-34); Mean Corpuscular Hgb Conc 35.3 g/dL (32-36); Mean Corpuscular Volume 88.7 fL (80-100); Mean Platelet Volume 11.2 fL (7.4-10.4); Monocytes # (auto) 0.84 K/uL (0.11-0.59); Monocytes % (auto) 5.9 %; Neutrophils % (auto) 89.4 %; Platelet Count 162 K/uL (130-400); RDW Coefficient of Variation 12.7 % (11.5-14.5); RDW Standard Deviation 41.1 fL (36.4-46.3); Red Blood Count 4.06 M/uL (4.7-6.1)
--- NOTE | 2019-10-08 07:00 | Orthopedic Progress Note ---
Date of Service October 08, 2019 Assessment & Plan (1) History of right hip replacement: Overall he is doing very well. Is not having too much pain in the right hip. He will be seen by physical therapy this morning for ambulation and range of motion exercises. He can be discharged home later today. He will be on Xarelto for 2 weeks and then switch to aspirin. This is what we did for his other hip and it worked well. He can follow-up with orthopedics in 2 weeks. Present on Admission?: Yes Subjective Clyde was seen and examined at bedside this morning. Overall he is doing very well. He is having very little pain in the right hip. He has been up and ambulating around his room. He has no complaints. Physical Exam Musculoskeletal: On physical examination of the right hip, the Jeannette VAC dressing is to suction. His leg lengths are equal. He has active dorsiflexion and plantarflexion of the right ankle. Results & Data ([facility]) Vital Signs (Past 12 Hours) Vital Signs Temp Pulse Resp BP Pulse Ox 10/08/19 03:40 36.7 C 80 14 138/75 93 10/07/19 23:45 36.4 C L 75 14 134/77 95 10/07/19 19:32 36.5 C 70 18 146/83 H 95 Laboratory Results H & H 10/07/19 10/08/19 Range/Units 07:14 04:53 Hgb 14.7 12.7 L (14.0-18.0) g/dL Hct 43.1 36.0 L (42-52) % Coagulation 10/07/19 Range/Units 07:14 INR 1.0 (0.9-1.1) Diagnostic Findings Postoperative x-rays of the right hip show the prosthesis to be in anatomic alignment without any evidence of fracture, dislocation, or loosening. PG Care Time/CCT Total # of Minutes Spent Total Time Spent with Patient: Total time spent is greater than 50% in coordination of care (as documented) at patient's floor/unit and/or counseling patient: Coding Level of Care Code None Diagnoses History of right hip replacement Z96.641
--- NOTE | 2019-10-08 07:01 | Discharge Summary ---
Date of Service October 08, 2019 Admission HPI Per Admitting Provider Clyde is a pleasant 64-year-old male who is been dealing with chronic bilateral hip pain. He underwent a left anterior total hip arthroplasty about 6 months ago. He is done very well with that. Unfortunately he has been dealing with a lot of right hip pain. X-rays and clinical examination have been diagnostic for primary osteoarthritis of the right hip. After failing conservative treatment, he has elected to proceed with a right anterior total hip arthroplasty. Principal Diagnosis Right total hip arthroplasty Discharge Data Allergies Allergy/AdvReac Type Severity Reaction Status Date / Time morphine AdvReac Mild DIZZINESS Verified 10/07/19 07:34 Consultations 10/08/19 08:00 Consult Case Management - Discharge Planning Routine Procedures Performed Operation Date: 10/07/19 08:50 Actual Procedures p Right Anterior Total Hip Arthroplasty(Right) - Cj Perdomo DO Ordered Studies 10/07/19 08:50 FL fluoroscopy <1hr Routine FL hip RT 1V Routine Hospital Course (1) History of right hip replacement: On October 07, 2019 Clyde arrived at [facility] and underwent a right total hip arthroplasty without complication. He had a spinal anesthetic. Postoperatively he was started on Xarelto for DVT prophylaxis and transferred to the general orthopedic floors. His hospital course was uneventful. On postop day #1 his H&H was stable and his pain was well controlled. He was able to participate well with physical therapy doing ambulation and range of motion exercises. He was then discharged home. He will follow-up with orthopedics in 2 weeks. Total Time Total Time Spent Total Time Spent (In Minutes): 20 Discharge Plan Discharge Items Patient Disposition: Home - Home Health Services Reason For Visit: RIGHT HIP DEGENERATIVE JOINT DISEASE Discharge Diagnosis: Right total hip arthroplasty Activity: As commented below Non-emergency contact: Surgeon Call non-emergency contact if: your wound has increased redness and your wound has increased drainage Follow-up/Referrals: Vinay Black MD [Primary Care Provider] - Diet: Regular Addtl Attending Provider Instructions: Activity and Therapy Recommendations: * If you are using [facility] then therapy will be provided at your home until they feel you have accomplished all of your goals. * If you are using [facility] then Physical Therapy will be provided until they feel you are ready to start Outpatient Physical Therapy. * If you are not using home therapy then Outpatient Physical Therapy should start about 3-5 days from your day of surgery. Therapy will last about 6-10 weeks * You were shown a series of exercises in the hospital. Do these exercises three times each day including the exercises you were shown in physical therapy. * Get up and walk several times each day.~ For the first four weeks, try not to stand or walk for more than one hour at a time. If you do stand or walk for more than one hour, you will not hurt anything, but your leg will likely swell.~~ * As you feel comfortable, you may change from the walker or crutches to a cane and~then to independent walking. Medications: * Narcotic You will likely be sent home from the hospital with a prescription for the narcotic pain medication that worked best throughout your stay. * Aspirin Most patients will be required to take Aspirin 81mg twice a day for 6 weeks after surgery. This is obtained [id number] and a prescription is not necessary. * Other medications may be prescribed for specific circumstances. If you have any questions, please call the office at . * Resume previous home medications unless otherwise instructed TEDs/Elastic Stockings: The white elastic stockings help limit swelling and prevent blood clots from forming in your legs. The more you wear them, the more they work. Wear them for six weeks. Dressing Care: You will likely have a purple VAC dressing after surgery. This dressing will keep the incision dry and promote early healing. After about 7 days the batteries will wear out and the VAC will lose suction. Simply remove the dressing at that time and throw everything away, including the small suction machine. Then, you may leave the rosanna open to air or cover them with a dry dressing so they do not rub on your pants. The rosanna will be removed at your 2 week follow-up appointment. Showering: You may shower immediately with the purple VAC dressing. Let the shower spray hit your opposite side and slowly pat the plastic dry. Do not soak the dressing. After the dressing is removed you may shower normally with the rosanna exposed. Let soapy water run over the rosanna and pat them dry. Things To Watch For: * Drainage from the incision site that occurs more than one week after your surgery. * Increased redness at the incision site. * Fever above 102 degrees Fahrenheit. * Unusual chest pain or shortness of breath. * Call [facility] at with any of the above problems Follow-Up Visit: Follow-up with Dr. Perdomo's PA (Cj Walter) 2-3 weeks after your day of surgery. He will remove your rosanna and answer any questions. If you have any additional questions or concerns, Dr Perdomo is usually in the office at the same time and will be available An appointment was probably scheduled when you signed-up for surgery in the office. If you have any questions call Office Instructions: More detailed instructions as well as Frequently Asked Questions were provided in a folder by our office when you signed-up for surgery. Please review these instructions when you get home. If you have any further questions or concerns, please feel free to call the office at [phone] Pending Studies at Discharge: No Stand-Alone Forms: My [facility], Smoking Cessation Medications and DC Order Prescriptions: New oxycodone 5 mg Tablet 5 mg PO Q4H PRN (Reason: pain) Qty: 30 RF: 0 Xarelto 10 mg Tablet 10 mg PO DAILY 14 Days Qty: 0 RF: 0 Continued losartan 25 mg Tablet 12.5 mg PO QAM RF: 0 Discontinued aspirin [Aspir-81] 81 mg Tablet,Delayed Release (Dr/Ec) 81 mg PO DAILY RF: 0 Discharge Orders: Discharge Order (Routine); Ordered 10/08/19 Ordered By: Cj Perdomo Admission Data Admit Date/Time: 10/07/19 11:17 Attending Provider: Cj Perdomo Admit Provider: Cj Perdomo Primary Care Provider: Vinay Black Coding Level of Care Code D/C Day Management <30 mins Diagnoses History of right hip replacement Z96.641
[2019-10-08 07:06] LABS: BUN Creatinine Ratio 20.2 (10-20); Calcium 8.5 mg/dl (8.5-10.1); Creatinine Clr Calc Pharmacy 104.5 ml/min; Est GFR (African American) 104.7; Est GFR (Non-African American) 90.4; Potassium 3.7 mmol/L (3.5-5.1)
[2019-10-08] MEDS: DOCUSATE SODIUM 100 MG CAP PO SCH (08:44)
[2019-10-08] MEDS ORDERED: MULTIVITAMIN TAB PO SCH (09:00)
[2019-10-08] MEDS ORDERED: LOSARTAN POTASSIUM 25 MG TAB PO SCH (09:00)
[2019-10-08] MEDS ORDERED: RIVAROXABAN 10 MG TABLET PO SCH (09:00)
== END 2019-10-08 12:03 | disposition home health service (06) ==
LOC: 3E 06:50 → ASU 06:50